=== PATIENT | female | born 1970 | race African-American/Black ===

== ENCOUNTER 2016-03-26 16:35 | Emergency (ER) | payer OTHER ==
[2016-03-26 16:41] VITALS: TEMP 99; BMI 34.4
[2016-03-26] MEDS ORDERED: ACETAMINOPHEN 325 MG TABLET (FP) PO ONE (17:38)
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
[2016-03-26] MEDS ORDERED: ACETAMINOPHEN 325 MG TABLET (FP) ONE (17:45)
[2016-03-26 17:50] VITALS: BP 127/69; PULSE 76
--- NOTE | 2016-03-30 16:28 | EKG ---
Test Reason : Blood Pressure : / mmHG Vent. Rate : 075 BPM Atrial Rate : 075 BPM P-R Int : 142 ms QRS Dur : 070 ms QT Int : 374 ms P-R-T Axes : 059 010 031 degrees QTc Int : 417 ms NORMAL SINUS RHYTHM POSSIBLE LEFT ATRIAL ENLARGEMENT BORDERLINE ECG NO PREVIOUS ECGS AVAILABLE Confirmed by LILI JACKMAN, NGOC ([id number]) on 03/30/2016 4:27:57 PM Referred By: Confirmed By:NGOC PEARSON MD
== END 2016-03-26 17:51 | disposition home or self-care (01) ==
LOC: JER 16:35
DX: S00.83XA Contusion of other part of head, initial encounter (principal); R07.89 Other chest pain; S80.811A Abrasion, right lower leg, initial encounter; V48.5XXA Car driver injured in noncollision transport accident in traffic accident, initial encounter; Y92.488 Other paved roadways as the place of occurrence of the external cause; Y93.89 Activity, other specified
CPT/HCPCS: 93005; 93010; 99282-25